=== PATIENT | female | born 1945 | race Caucasian/White ===

== ENCOUNTER 2019-12-30 08:38 | Emergency (ER) | payer MEDICARE ==
[~2019-12-30] VITALS: Ht 157.5 cm; Wt 75.5 kg
[2019-12-30] MEDS ORDERED: furosemide 40mg/4ml inj IV ONE (09:40)
[2019-12-30 10:05] LABS: BASOPHILS # (AUTO) 0.1 X10'3 (0-0.2); EOSINOPHILS # (AUTO) 0.3 X10'3 (0-0.9); EOSINOPHILS % (AUTO) 4.1 % (0-6); HEMATOCRIT 28.6 % (35.0-45.0); HEMOGLOBIN 9.3 g/dl (12.0-16.0); LYMPHOCYTES # (AUTO) 1.5 X10'3 (1.1-4.8); LYMPHOCYTES % (AUTO) 19.4 % (21-51); MEAN CORPUSCULAR HEMOGLOBIN 30.4 PG (27.0-31.0); MEAN CORPUSCULAR HGB CONC 32.5 g/dL (33.0-36.5); MEAN CORPUSCULAR VOLUME 93.6 FL (78-98); MEAN PLATELET VOLUME 9.3 FL (7.4-10.4); MONOCYTES # (AUTO) 0.5 X10'3 (0-0.9); MONOCYTES % (AUTO) 6.1 % (2-12); NEUTROPHILS # (AUTO) 5.4 X10'3 (1.8-7.7); NEUTROPHILS % (AUTO) 69.4 % (42-75); PLATELET COUNT 225 X10'3 (140-440); RED BLOOD COUNT 3.05 X10'6 (4.20-5.60); RED CELL DISTRIBUTION WIDTH 17.4 % (11.5-14.5); WHITE BLOOD COUNT 7.8 X10'3 (4.5-11.0)
[2019-12-30 10:11] LABS: ANION GAP 14 (8-16); BLOOD UREA NITROGEN 62 MG/DL (7-18); CHLORIDE 110 MMOL/L (99-107); CREATININE 7.75 MG/DL (0.40-0.90); GLUCOSE 139 MG/DL (70-104); POTASSIUM 4.3 MMOL/L (3.5-5.1); SODIUM 146 MMOL/L (135-145); TOTAL CARBON DIOXIDE 22.3 MMOL/L (24-32)
[2019-12-30 10:12] LABS: ALANINE AMINOTRANSFERASE 12 U/L (12-78); ALBUMIN 3.3 G/DL (3.4-5.0); ALKALINE PHOSPHATASE 103 IU/L (46-116); ASPARTATE AMINO TRANSFERASE 15 U/L (10-37); BILIRUBIN,TOTAL 0.5 MG/DL (0.1-1.0); CALCIUM 8.7 MG/DL (8.5-10.1); TOTAL PROTEIN 6.7 G/DL (6.4-8.2); eGFR 5 ML/MIN
[2019-12-30] MEDS ORDERED: normal saline 1000ml 250 ML IV PRN (10:38)
[2019-12-30] MEDS ORDERED: heparin 1,000unit/ml 10ml vial 10 ML IV ONE (10:38)
[2019-12-30] MEDS ORDERED: heparin 1,000 units/ml 10ml inj IV ONE (10:40)
--- NOTE | 2019-12-30 11:00 | NUR ---
PROVIDED PT FOOD, INFORMED PT'S DAUGHTER THAT IT COULD BE A 6 HOUR WAIT TO COMPLETE HER DIALYSIS
--- NOTE | 2019-12-30 13:00 | NUR ---
PT WAITING FOR DIALYSIS NURSE
--- NOTE | 2019-12-30 14:30 | NUR ---
PROVIDED PT LUNCH TRAY
[2019-12-30] MEDS ORDERED: heparin 1,000 units/ml 10ml inj HE ONE ×2 (15:25)
[2019-12-30] MEDS ORDERED: furosemide 20MG tablet PO ONE (15:30)
--- NOTE | 2019-12-30 15:30 | NUR ---
GAVE REPORT TO BLADDER TRIMMER AND MOVED PT TO ROOM 29 IN OVERFLOW FOR DIALYSIS TREATMENT. WILL DISCHARGE PT AFTER TREATMENT COMPLETE.
[2019-12-30 18:57] VITALS: BP 149/89
== END 2019-12-30 18:55 | disposition home or self-care (01) ==
LOC: ER 08:39
DX: J90 Pleural effusion, not elsewhere classified (principal); R06.02 Shortness of breath; N18.6 End stage renal disease; Z99.2 Dependence on renal dialysis
CPT/HCPCS: 36415; 71045; 80053; 83880; 84484; 85025; 93005; 96365; 99285; J1644